=== PATIENT | male | born 1960 | race Caucasian/White ===

== ENCOUNTER 2017-06-27 12:28 | Emergency (ER) | payer OTHER ==
[~2017-06-27] VITALS: Ht 195.6 cm; Wt 99.8 kg
[~2017-06-27 12:28] MED LIST: ACEASPCAF; AMLO10 PO; AMOCLA875 PO; ANTOXYBENA LEFTEAR; AXIRON30 MG/1.5 TD; Ativan1 MG PO; BENZ100A PO; Bactrim Ds Tab1 EACH PO; CEPH500 PO; CIPR500 PO; DIPATR PO; ESOM20 PO; GUAI120S1 PO; Guaifenesin-Co118 ML PO; HYDPAM25 PO; IBUP800; Keflex500 MG PO; LEVFLO500 PO; LOSA50 PO; Lotrimin Ultra12 GM EXT; METPHE20 PO; MUPI1NAS; OXYACE5T PO; OXYC5 PO; PROC10 PO; PROM25 PO; PSEU120ER PO; Phenergan/Code480 ML PO; Prednisone20 MG PO; RXCLIN PO; RXOXYACE PO; RXTRAM50 PO; SULTRIDS PO; Sudogest30 MG PO; Sudogest60 MG PO; TAMS.4ER PO; TEMA15 PO; TESTONE CI200 MG/1 M IM; TRAM50 PO; Tessalon200 MG PO; Veetids 500500 MG PO; ZOLP10 PO; Zithromax250 MG PO; Zofran Odt8 MG SL
[2017-06-27] MEDS ORDERED: Zithromax250 MG PO (13:06)
[2017-06-27] MEDS ORDERED: Sudogest60 MG PO (13:06)
[2017-06-27] MEDS ORDERED: BENZ100A PO (13:12)
== END 2017-06-27 13:15 | disposition home or self-care (01) ==
LOC: ER 12:28
DX: J32.9 Chronic sinusitis, unspecified (principal); I10 Essential (primary) hypertension; Z79.899 Other long term (current) drug therapy; Z79.2 Long term (current) use of antibiotics
CPT/HCPCS: 99282

== ENCOUNTER 2017-06-29 00:06 | Emergency (ER) | payer OTHER ==
[~2017-06-29] VITALS: Ht 195.6 cm; Wt 104.3 kg
[2017-06-29] MEDS ORDERED: Sudogest30 MG PO (00:28)
[2017-06-29] MEDS ORDERED: AZIT250 PO (00:28)
[2017-06-29] MEDS ORDERED: Pseudoephedrine30 MG PO (01:38)
[2017-06-29] MEDS ORDERED: BENZ100A PO (01:38)
[2017-06-30] MEDS ORDERED: Zofran Odt4 MG SL (13:04)
[2017-06-30] MEDS ORDERED: Cheratussin AC118 ML PO (13:04)
== END 2017-06-29 02:15 | disposition home or self-care (01) ==
LOC: ER 00:06
DX: J20.9 Acute bronchitis, unspecified (principal); Z79.899 Other long term (current) drug therapy; Z79.2 Long term (current) use of antibiotics; I10 Essential (primary) hypertension
CPT/HCPCS: 71046; 71250; 99284

== ENCOUNTER 2017-06-30 11:43 | Emergency (ER) | payer OTHER ==
[~2017-06-30] VITALS: Ht 195.6 cm; Wt 105.0 kg
[~2017-06-30 11:43] MED LIST changes: +AZIT250 PO; +Pseudoephedrine30 MG PO
[2017-06-30] MEDS ORDERED: Zofran Odt4 MG SL (13:04)
[2017-06-30] MEDS ORDERED: Cheratussin AC118 ML PO (13:04)
== END 2017-06-30 13:11 | disposition home or self-care (01) ==
LOC: ER 11:43
DX: J20.9 Acute bronchitis, unspecified (principal); Z79.899 Other long term (current) drug therapy; Z79.2 Long term (current) use of antibiotics; I10 Essential (primary) hypertension
CPT/HCPCS: 99283

== ENCOUNTER 2017-07-07 18:11 | Emergency (ER) | payer OTHER ==
[~2017-07-07] VITALS: Ht 195.6 cm; Wt 104.3 kg
[~2017-07-07 18:11] MED LIST changes: +Cheratussin AC118 ML PO; +Zofran Odt4 MG SL
[2017-07-07] MEDS ORDERED: Zofran Odt4 MG PO (20:32)
[2017-07-07] MEDS ORDERED: Prednisone20 MG PO (20:32)
[2017-07-07] MEDS ORDERED: BENZ100A PO (20:32)
== END 2017-07-07 21:06 | disposition home or self-care (01) ==
LOC: ER 18:11
DX: R05 Cough (principal); I10 Essential (primary) hypertension; Z79.899 Other long term (current) drug therapy
CPT/HCPCS: 99283

== ENCOUNTER 2017-09-15 21:53 | Emergency (ER) | payer OTHER ==
[~2017-09-15] VITALS: Ht 195.6 cm; Wt 102.1 kg
[~2017-09-15 21:53] MED LIST changes: +Zofran Odt4 MG PO
[2017-09-15] MEDS ORDERED: Keflex500 MG PO (22:40)
[2017-09-15] MEDS ORDERED: IBUP400 PO (22:40)
[2017-09-15] MEDS ORDERED: Ciprodex Otic7.5 ML LEFTEAR (22:40)
== END 2017-09-15 23:30 | disposition home or self-care (01) ==
LOC: ER 21:53
DX: H60.92 Unspecified otitis externa, left ear (principal); F98.8 Other specified behavioral and emotional disorders with onset usually occurring in childhood and adolescence; I10 Essential (primary) hypertension; Z79.899 Other long term (current) drug therapy
CPT/HCPCS: 99283

== ENCOUNTER 2017-09-27 22:52 | Emergency (ER) | payer OTHER ==
[~2017-09-27] VITALS: Ht 188 cm; Wt 86.2 kg
[~2017-09-27 22:52] MED LIST changes: +Ciprodex Otic7.5 ML LEFTEAR; +IBUP400 PO
[2017-09-28] MEDS ORDERED: IBUP600 PO (00:23)
[2017-09-28] MEDS ORDERED: ATHLETIC FOOT C30 GM TOP (00:23)
== END 2017-09-28 00:40 | disposition home or self-care (01) ==
LOC: ER 22:52
DX: M79.671 Pain in right foot (principal); M79.672 Pain in left foot; Z79.899 Other long term (current) drug therapy; I10 Essential (primary) hypertension

== ENCOUNTER 2017-11-04 16:45 | Emergency (ER) | payer OTHER ==
[~2017-11-04] VITALS: Ht 188 cm; Wt 90.7 kg
[~2017-11-04 16:45] MED LIST changes: +ATHLETIC FOOT C30 GM TOP; +IBUP600 PO
[2017-11-04] MEDS ORDERED: Norco 5-325 Ta1 EACH PO (19:57)
[2017-11-04] MEDS ORDERED: CEPH500 PO (19:57)
[2017-11-04] MEDS ORDERED: Bactrim Ds Tab1 EACH PO (19:57)
== END 2017-11-04 20:13 | disposition home or self-care (01) ==
LOC: ER 16:45
DX: S30.862A Insect bite (nonvenomous) of penis, initial encounter (principal); L98.8 Other specified disorders of the skin and subcutaneous tissue; I10 Essential (primary) hypertension; Z79.899 Other long term (current) drug therapy; W57.XXXA Bitten or stung by nonvenomous insect and other nonvenomous arthropods, initial encounter
CPT/HCPCS: 99282

== ENCOUNTER 2018-06-15 11:36 | Emergency (ER) | payer OTHER ==
[~2018-06-15] VITALS: Ht 195.6 cm; Wt 106.3 kg
[~2018-06-15 11:36] MED LIST changes: +Norco 5-325 Ta1 EACH PO
[2018-06-15] MEDS ORDERED: Monodox100 MG PO (12:25)
[2018-06-18] MEDS ORDERED: Augmentin 875-1 EACH PO (10:36)
[2018-06-18] MEDS ORDERED: HYDR1TAB94 PO (10:36)
== END 2018-06-15 12:36 | disposition home or self-care (01) ==
LOC: ER 11:36
DX: L03.311 Cellulitis of abdominal wall (principal); Z79.899 Other long term (current) drug therapy; I10 Essential (primary) hypertension
CPT/HCPCS: 99282

== ENCOUNTER 2018-10-13 11:52 | Emergency (ER) | payer OTHER ==
[~2018-10-13] VITALS: Ht 195.6 cm; Wt 99.8 kg
[~2018-10-13 11:52] MED LIST changes: +Augmentin 875-1 EACH PO; +HYDR1TAB94 PO; +Monodox100 MG PO
[2018-10-13] MEDS ORDERED: Augmentin 875-1 EACH PO (12:33)
== END 2018-10-13 12:39 | disposition home or self-care (01) ==
LOC: ER 11:52
DX: L03.313 Cellulitis of chest wall (principal); L02.213 Cutaneous abscess of chest wall; Z88.2 Allergy status to sulfonamides; I10 Essential (primary) hypertension
CPT/HCPCS: 99282

== ENCOUNTER 2018-10-28 13:42 | Emergency (ER) | payer OTHER ==
[~2018-10-28] VITALS: Ht 195.6 cm; Wt 97.4 kg
[2018-10-28] MEDS ORDERED: Mupirocin22 GM TOP (14:03)
[2018-10-28] MEDS ORDERED: Augmentin 875-1 EACH PO (14:03)
== END 2018-10-28 14:10 | disposition home or self-care (01) ==
LOC: ER 13:42
DX: L08.9 Local infection of the skin and subcutaneous tissue, unspecified (principal); B95.8 Unspecified staphylococcus as the cause of diseases classified elsewhere; I10 Essential (primary) hypertension; Z88.2 Allergy status to sulfonamides
CPT/HCPCS: 99282

== ENCOUNTER 2018-11-08 23:40 | Emergency (ER) | payer OTHER ==
[~2018-11-08] VITALS: Ht 195.6 cm; Wt 96.6 kg
[~2018-11-08 23:40] MED LIST changes: +Mupirocin22 GM TOP
[2018-11-09] MEDS ORDERED: Cleocin HCl300 MG PO (00:35)
== END 2018-11-09 00:52 | disposition home or self-care (01) ==
LOC: ER 23:40
DX: L03.313 Cellulitis of chest wall (principal); I10 Essential (primary) hypertension; F98.8 Other specified behavioral and emotional disorders with onset usually occurring in childhood and adolescence; Z88.2 Allergy status to sulfonamides
CPT/HCPCS: 99283

== ENCOUNTER 2018-11-14 19:33 | Emergency (ER) | payer OTHER ==
[~2018-11-14] VITALS: Ht 195.6 cm; Wt 98.9 kg
[~2018-11-14 19:33] MED LIST changes: +Cleocin HCl300 MG PO
[2018-11-14] MEDS ORDERED: Clindamycin HC300 MG PO (20:01)
[2018-11-14] MEDS ORDERED: CORTISONE60 GM TOP (20:01)
== END 2018-11-14 20:07 | disposition home or self-care (01) ==
LOC: ER 19:33
DX: S20.362A Insect bite (nonvenomous) of left front wall of thorax, initial encounter (principal); L03.313 Cellulitis of chest wall; Z88.2 Allergy status to sulfonamides; Z79.899 Other long term (current) drug therapy; W57.XXXA Bitten or stung by nonvenomous insect and other nonvenomous arthropods, initial encounter
CPT/HCPCS: 99282

== ENCOUNTER 2018-11-28 11:43 | Emergency (ER) | payer OTHER ==
[~2018-11-28] VITALS: Ht 195.6 cm; Wt 96.6 kg
[~2018-11-28 11:43] MED LIST changes: +CORTISONE60 GM TOP; +Clindamycin HC300 MG PO
[2018-11-28] MEDS ORDERED: MUPIROCIN1 GM TOP (12:45)
== END 2018-11-28 12:50 | disposition home or self-care (01) ==
LOC: ER 11:43
DX: L73.9 Follicular disorder, unspecified (principal); Z88.2 Allergy status to sulfonamides; Z79.899 Other long term (current) drug therapy
CPT/HCPCS: 99282

== ENCOUNTER 2018-12-03 13:32 | Emergency (ER) | payer OTHER ==
[~2018-12-03] VITALS: Ht 195.6 cm; Wt 97.5 kg
[~2018-12-03 13:32] MED LIST changes: +MUPIROCIN1 GM TOP
[2018-12-03] MEDS ORDERED: CLIN300 PO (15:30)
[2018-12-03] MEDS ORDERED: Permethrin60 GM TOP (15:30)
== END 2018-12-03 15:35 | disposition home or self-care (01) ==
LOC: ER 13:32
DX: L73.9 Follicular disorder, unspecified (principal)
CPT/HCPCS: 99283

== ENCOUNTER 2019-01-07 22:25 | Emergency (ER) | payer OTHER ==
[~2019-01-07] VITALS: Ht 195.6 cm; Wt 224.3 kg
[~2019-01-07 22:25] MED LIST changes: +CLIN300 PO; +Permethrin60 GM TOP
[2019-01-08] MEDS ORDERED: Vibramycin100 MG PO (00:22)
[2019-01-09] MEDS ORDERED: Ultram50 MG PO (16:47)
== END 2019-01-08 00:28 | disposition home or self-care (01) ==
LOC: ER 22:25
DX: L02.31 Cutaneous abscess of buttock (principal); L03.317 Cellulitis of buttock
CPT/HCPCS: 10060; 99281-25

== ENCOUNTER 2019-01-09 15:59 | Emergency (ER) | payer OTHER ==
[~2019-01-09] VITALS: Ht 195.6 cm; Wt 99.8 kg
[~2019-01-09 15:59] MED LIST changes: +Vibramycin100 MG PO
[2019-01-09] MEDS ORDERED: Ultram50 MG PO (16:47)
== END 2019-01-09 17:02 | disposition home or self-care (01) ==
LOC: ER 15:59
DX: L02.31 Cutaneous abscess of buttock (principal); L03.317 Cellulitis of buttock
CPT/HCPCS: 10061; 99282-25

== ENCOUNTER → 2019-01-12 | Outpatient (CLI) | payer OTHER ==
[~2019-01-12] MED LIST changes: +Ultram50 MG PO
== END ==
LOC: LAB 16:15 → LAB SHORT 16:15
DX: L08.9 Local infection of the skin and subcutaneous tissue, unspecified (principal); L02.32 Furuncle of buttock; L81.0 Postinflammatory hyperpigmentation
CPT/HCPCS: 87070

== ENCOUNTER 2019-04-23 10:39 | Emergency (ER) | payer OTHER ==
[~2019-04-23] VITALS: Ht 195.6 cm; Wt 112.2 kg
[2019-04-23] MEDS ORDERED: Vibramycin100 MG PO (11:24)
== END 2019-04-23 11:39 | disposition home or self-care (01) ==
LOC: ER 10:39
DX: J18.9 Pneumonia, unspecified organism (principal)
CPT/HCPCS: 99283

== ENCOUNTER 2019-06-08 22:45 | Emergency (ER) | payer OTHER ==
[~2019-06-08] VITALS: Ht 195.6 cm; Wt 111.0 kg
== END 2019-06-08 23:50 | disposition home or self-care (01) ==
LOC: ER 22:45
DX: J06.9 Acute upper respiratory infection, unspecified (principal)
CPT/HCPCS: 71045; 99283-25

== ENCOUNTER 2020-01-10 07:30 | Emergency (ER) | payer OTHER ==
[~2020-01-10] VITALS: Ht 195.6 cm; Wt 96.2 kg
[~2020-01-10 07:30] MED LIST changes: +TESSALON PERLE100 MG PO
[2020-01-10] MEDS ORDERED: PRED20 PO (09:17)
[2020-01-10] MEDS ORDERED: ALBU90OI INH (09:17)
== END 2020-01-10 09:28 | disposition home or self-care (01) ==
LOC: ER 07:30
DX: R05 Cough (principal); R53.83 Other fatigue; R06.02 Shortness of breath
CPT/HCPCS: 71046; 99282-25

== ENCOUNTER 2020-08-17 16:14 | Emergency (ER) | payer OTHER ==
[~2020-08-17] VITALS: Ht 195.6 cm; Wt 110.9 kg
[~2020-08-17 16:14] MED LIST changes: +ALBU90OI INH; +PRED20 PO
[2020-08-17 17:49] LABS: BASOPHILS ABSOLUTE AUTO 0.03 K/mm3 (0.00-0.23); BASOPHILS PERCENT AUTO 0 % (0-2); EOSINOPHILS ABSOLUTE AUTO 0.16 K/mm3 (0.00-0.68); EOSINOPHILS PERCENT AUTO 2 % (0-6); Hematocrit 45.4 % (37.0-53.0); Hemoglobin 15.6 g/dL (13.5-17.5); IMMATURE GRAN ABSOLUTE AUTO 0.02 K/mm3 (0.00-0.10); IMMATURE GRAN PERCENT AUTO 0 % (0-1); LYMPHOCYTES ABSOLUTE AUTO 1.75 K/mm3 (0.84-5.20); LYMPHOCYTES PERCENT AUTO 25 % (21-46); MONOCYTES PERCENT AUTO 7 % (4-13); Mean Corpuscular HGB 29.9 pg (26.0-34.0); Mean Corpuscular HGB Conc 34.4 g/dL (31.5-36.5); Mean Corpuscular Volume 87 fL (80-100); Mean Platelet Volume 10.3 fL (9.1-12.4); NEUTROPHILS ABSOLUTE AUTO 4.68 K/mm3 (1.96-9.15); NEUTROPHILS PERCENT AUTO 66 % (41-73); Platelet Count 259 K/mm3 (150-400); RDW Coefficient Variation 12.4 % (11.7-14.2); RDW Standard Deviation 39.6 fL (35.1-46.3); Red Blood Cell Count 5.21 M/mm3 (4.30-5.90); White Blood Cell Count 7.14 K/mm3 (4.00-11.30)
[2020-08-17 18:07] LABS: Alanine Aminotransfer (ALT/SGP 30 U/L (12-78); Albumin, Blood 4.1 g/dL (3.4-5.0); Albumin/Globulin Ratio 1.2 (0.8-1.8); Alk Phos 54 U/L (50-136); Anion Gap 6 mmol/L (6-16); Aspartate Aminotrans (AST/SGOT 23 U/L (12-37); Bilirubin, Total 0.6 mg/dL (0.1-1.0); Blood Urea Nitrogen 9 mg/dL (8-24); Bun/Creatinine Ratio 9.7 (12.0-20.0); CO2, Blood 29 mmol/L (21-32); Calcium, Blood 9.3 mg/dL (8.5-10.1); Chloride, Blood 105 mmol/L (98-108); Creatinine, Blood 0.93 mg/dL (0.60-1.20); Globulin, Blood 3.4 g/dL (2.2-4.0); Glomerular Filtration Rate >60 (60-); Glucose, Blood 109 mg/dL (70-99); Magnesium, Blood 2.1 mg/dL (1.6-2.4); Potassium, Blood 4.1 mmol/L (3.5-5.5); Sodium, Blood 140 mmol/L (136-145); Total Protein, Blood 7.5 g/dL (6.4-8.2)
== END 2020-08-17 19:00 | disposition home or self-care (01) ==
LOC: ER 16:14
PROVIDERS: Physician Assistant
DX: Z00.00 Encounter for general adult medical examination without abnormal findings (principal); Z79.52 Long term (current) use of systemic steroids; Z79.899 Other long term (current) drug therapy
CPT/HCPCS: 36415; 80053; 83735; 85025; 99283

== ENCOUNTER 2020-08-28 21:37 | Emergency (ER) | payer OTHER ==
[~2020-08-28] VITALS: Ht 195.6 cm; Wt 108.9 kg
== END 2020-08-29 00:15 | disposition left against medical advice (07) ==
LOC: ER 21:37
DX: R45.4 Irritability and anger (principal); T50.B95A Adverse effect of other viral vaccines, initial encounter; Z53.21 Procedure and treatment not carried out due to patient leaving prior to being seen by health care provider; Z98.890 Other specified postprocedural states
CPT/HCPCS: 99282

== ENCOUNTER 2021-10-23 13:56 | Emergency (ER) | payer OTHER ==
[~2021-10-23] VITALS: Ht 195.6 cm; Wt 124.7 kg
== END 2021-10-23 17:08 | disposition home or self-care (01) ==
LOC: ER 13:56
DX: M54.50 Low back pain, unspecified (principal); G89.29 Other chronic pain
CPT/HCPCS: 99281

== ENCOUNTER 2022-08-11 10:57 | Emergency (ER) | payer OTHER ==
[~2022-08-11] VITALS: Ht 195.6 cm; Wt 112.9 kg
[2022-08-11 12:23] LABS: BASOPHILS ABSOLUTE AUTO 0.03 K/mm3 (0.00-0.23); BASOPHILS PERCENT AUTO 0 % (0-2); EOSINOPHILS ABSOLUTE AUTO 0.02 K/mm3 (0.00-0.68); EOSINOPHILS PERCENT AUTO 0 % (0-6); Hematocrit 39.6 % (37.0-53.0); Hemoglobin 13.4 g/dL (13.5-17.5); IMMATURE GRAN ABSOLUTE AUTO 0.02 K/mm3 (0.00-0.10); IMMATURE GRAN PERCENT AUTO 0 % (0-1); LYMPHOCYTES ABSOLUTE AUTO 1.62 K/mm3 (0.84-5.20); LYMPHOCYTES PERCENT AUTO 17 % (21-46); MONOCYTES ABSOLUTE AUTO 0.65 K/mm3 (0.16-1.47); MONOCYTES PERCENT AUTO 7 % (4-13); Mean Corpuscular HGB 29.1 pg (26.0-34.0); Mean Corpuscular HGB Conc 33.8 g/dL (31.5-36.5); Mean Corpuscular Volume 86 fL (80-100); Mean Platelet Volume 9.9 fL (9.1-12.4); NEUTROPHILS PERCENT AUTO 76 % (41-73); Platelet Count 437 K/mm3 (150-400); RDW Coefficient Variation 12.3 % (11.7-14.2); RDW Standard Deviation 38.5 fL (35.1-46.3); Red Blood Cell Count 4.61 M/mm3 (4.30-5.90); White Blood Cell Count 9.84 K/mm3 (4.00-11.30)
[2022-08-11 12:54] LABS: Albumin, Blood 3.7 g/dL (3.4-5.0); Albumin/Globulin Ratio 0.9 (0.8-1.8); Bilirubin, Total 0.6 mg/dL (0.1-1.0); Bun/Creatinine Ratio 15.2 (12.0-20.0); Calcium, Blood 9.7 mg/dL (8.5-10.1); Creatinine, Blood 0.66 mg/dL (0.60-1.20); Potassium, Blood 3.7 mmol/L (3.5-5.5); Total Protein, Blood 7.7 g/dL (6.4-8.2)
[2022-08-11] MEDS ORDERED: ACET500 PO (15:45)
[2022-08-11] MEDS ORDERED: ASCO500 PO (15:47)
[2022-08-11] MEDS ORDERED: INSULANPEN SC (15:48)
[2022-08-11] MEDS ORDERED: HUMALOG MI100 UNIT/2 SC (15:50)
[2022-08-11] MEDS ORDERED: HUMALOG KW100 UNIT/1 SC (15:54)
[2022-08-11] MEDS ORDERED: LIDO700A20 TD (15:55)
[2022-08-11] MEDS ORDERED: MELA3 PO (15:55)
[2022-08-11 16:00] VITALS: BP 140/96
[2022-08-12] MEDS ORDERED: Hair, Skin & N1 EACH PO (01:02)
[2022-08-12] MEDS ORDERED: OXYC10TA19 PO (01:05)
[2022-08-12] MEDS ORDERED: NALOXONE HCL4 MG (01:07)
[2022-08-12] MEDS ORDERED: MIRALAX17 GM PO (01:07)
[2022-08-12] MEDS ORDERED: Crestor20 MG (01:08)
[2022-08-12] MEDS ORDERED: PREG150 PO (01:08)
[2022-08-12] MEDS ORDERED: TAMS.4ER PO (01:09)
[2022-08-12] MEDS ORDERED: Sen-O-Tab8.6 MG PO (01:09)
[2022-08-12] MEDS ORDERED: TIZA4 PO (01:10)
== END 2022-08-11 15:20 | disposition home or self-care (01) ==
LOC: ER 10:57
PROVIDERS: Student in an Organized Health Care Education/Training Program
DX: G89.18 Other acute postprocedural pain (principal); M54.2 Cervicalgia; R53.1 Weakness; R53.83 Other fatigue; Z79.52 Long term (current) use of systemic steroids
CPT/HCPCS: 80053; 85025; 93005; 93010; 96361; 96374; 99283-25; J3010; J7030

== ENCOUNTER 2022-10-29 00:07 | Emergency (ER) | payer OTHER | END 2022-10-29 04:35 | disposition home or self-care (01) | LOC: ER 00:07 | DX: R53.81 Other malaise (principal); Z79.899 Other long term (current) drug therapy; Z79.4 Long term (current) use of insulin; Z79.52 Long term (current) use of systemic steroids; E11.9 Type 2 diabetes mellitus without complications ==

== ENCOUNTER → 2023-03-10 | Outpatient (CLI) | payer OTHER ==
[~2023-03-10] MED LIST changes: +ACET500 PO; +ASCO500 PO; +Crestor20 MG; +HUMALOG KW100 UNIT/1 SC; +HUMALOG MI100 UNIT/2 SC; +Hair, Skin & N1 EACH PO; +INSULANPEN SC; +LIDO700A20 TD; +MELA3 PO; +MIRALAX17 GM PO; +NALOXONE HCL4 MG; +ONDA4ODT MM; +OXYC10TA19 PO; +PREG150 PO; +Sen-O-Tab8.6 MG PO; +TIZA4 PO
== END | disposition home or self-care (01) ==
LOC: LAB SHORT 08:18 → LAB 08:18
DX: E29.9 Testicular dysfunction, unspecified (principal)
CPT/HCPCS: 36415